=== PATIENT | female | born 1990 | race Two or more races ===

== ENCOUNTER → 2021-12-12 | Outpatient (REF) | payer OTHER | LOC: M SFHCWAGY 16:56 | PROVIDERS: ATTEND Obstetrics & Gynecology | DX: O34.211 Maternal care for low transverse scar from previous cesarean delivery (principal) ==

== ENCOUNTER → 2021-12-28 | Outpatient (CLI) | payer OTHER ==
[~2021-12-28] MED LIST: PREN1TAB11 PO
== END ==
LOC: M LABSMTC 09:24
PROVIDERS: ATTEND Anesthesiology
DX: Z01.818 Encounter for other preprocedural examination (principal); Z11.52 Encounter for screening for COVID-19

== ENCOUNTER 2022-01-01 05:37 | Inpatient (IN) | payer OTHER ==
[~2022-01-01] VITALS: Ht 160 cm; Wt 101.0 kg
[2022-01-01] VITALS (9 sets, daily range): BP systolic 115–135; BP diastolic 58–84
[2022-01-01 06:54] LABS: HEMATOCRIT 38.2 % (36.0-47.0); HEMOGLOBIN 12.4 g/dl (12.0-15.5); MEAN CORPUSCULAR HGB CONC 32.5 g/dl (32.0-36.5); MEAN CORPUSCULAR VOLUME 89.5 fl (80.0-96.0); PLATELET COUNT, AUTOMATED 245 10^3/uL (150-450); RED BLOOD COUNT 4.27 10^6/uL (4.00-5.40); WHITE BLOOD COUNT 11.3 10^3/uL (4.0-10.0)
[2022-01-01] MEDS ORDERED: ceFAZolin SOD 2 GM in IV 1 EA IV ONE (06:55)
[2022-01-01] MEDS ORDERED: LACTATED RINGER'S 1000 ML IV ONE (07:00)
[2022-01-01] MEDS ORDERED: BICITRA 30ML SOLN UDC PO ONE (07:00)
[2022-01-01] MEDS: LR 1,000 ML IV SCH ×6 (07:30→23:55)
[2022-01-01] MEDS ORDERED: RHOGAM 300 MCG (1500 IU) INJ (J2790) IM SCH (07:55)
[2022-01-01] MEDS ORDERED: ONDANSETRON 4MG 2ML VIAL IV PRN ×2 (07:55→09:55)
[2022-01-01] MEDS ORDERED: MOM 30ML SUSPENSION UDC PO PRN (07:55)
[2022-01-01] MEDS ORDERED: OXYTOCIN DRIP 30 UNITS in IV 1 EA IV SCH (07:55)
[2022-01-01] MEDS ORDERED: PERCOCET 5MG/325MG TAB PO PRN ×2 (07:55→09:55)
[2022-01-01] MEDS ORDERED: SIMETHICONE 80MG CHEW TAB PO PRN (07:55)
[2022-01-01] MEDS ORDERED: MORPHINE PRES-FREE INJ 10 MG/10 ML VIAL As Ordered ONE (08:02)
[2022-01-01] MEDS ORDERED: OXYTOCIN INJ 10 UNITS/ML VIAL (J2590) As Ordered ONE (08:02)
[2022-01-01] MEDS ORDERED: ONDANSETRON 4MG 2ML VIAL As Ordered ONE (08:21)
[2022-01-01] MEDS ORDERED: METOCLOPRAMIDE INJ 10MG/2ML VIAL (J2765 PER 1) As Ordered ONE (08:27)
[2022-01-01] MEDS ORDERED: KETOROLAC 60MG 2ML VIAL As Ordered ONE (08:42)
[2022-01-01] MEDS: PRENATAL VITAMINS CHEWABLE TABLET PO SCH (09:00)
[2022-01-01] MEDS: DOCUSATE SODIUM 100MG CAPSULE PO SCH ×2 (09:00→21:00)
[2022-01-01 09:03] LABS: GC DNA AMPLIFICATION NEGATIVE (NEGATIVE)
[2022-01-01] MEDS ORDERED: OXYTOCIN 30 UNITS IN 0.9% NaCl 500ML IV BAG (J2590) As Ordered ONE (09:19)
[2022-01-01] MEDS ORDERED: fentaNYL 100 MCG/2 ML INJECTION IV PRN (09:55)
[2022-01-01] MEDS ORDERED: NALOXONE INJ 0.4MG/1ML VIAL (J2310 PER 1MG) IV PRN ×2 (09:55)
[2022-01-01] MEDS ORDERED: LR 1,000 ML IV SCH (09:55)
[2022-01-01] MEDS ORDERED: **NOTE PATIENT COMMENT** MISC XX SCH (09:55)
[2022-01-01] MEDS ORDERED: METOCLOPRAMIDE INJ 10MG/2ML VIAL (J2765 PER 1) IV PRN (09:55)
[2022-01-01] MEDS ORDERED: diphenhydrAMINE 50MG/ML VIAL (J1200) IV PRN (09:55)
[2022-01-01] MEDS: SLF 3 ML SYR IV SCH ×2 (10:00→15:30)
[2022-01-01] MEDS: KETOROLAC 30 MG/ML 1ML VIAL IV SCH ×2 (14:53→21:00)
[2022-01-01 16:13] LABS: HIV 1&2 SCREEN CENTAUR NEGATIVE (NEGATIVE)
[2022-01-02] MEDS: SLF 3 ML SYR IV SCH (02:00)
[2022-01-02] MEDS: KETOROLAC 30 MG/ML 1ML VIAL IV SCH (03:08)
[2022-01-02 06:00] VITALS: BP 121/62
[2022-01-02 06:47] LABS: HEMATOCRIT 32.7 % (36.0-47.0); HEMOGLOBIN 10.7 g/dl (12.0-15.5); MEAN CORPUSCULAR HEMOGLOBIN 29.8 pg (27.0-33.0); MEAN CORPUSCULAR HGB CONC 32.7 g/dl (32.0-36.5); MEAN CORPUSCULAR VOLUME 91.1 fl (80.0-96.0); PLATELET COUNT, AUTOMATED 220 10^3/uL (150-450); RED BLOOD COUNT 3.59 10^6/uL (4.00-5.40); WHITE BLOOD COUNT 13.4 10^3/uL (4.0-10.0)
[2022-01-02] MEDS: LR 1,000 ML IV SCH ×5 (07:00→23:00)
[2022-01-02 10:00] VITALS: BP 112/65
[2022-01-02] MEDS: PRENATAL VITAMINS CHEWABLE TABLET PO SCH (10:02)
[2022-01-02] MEDS: DOCUSATE SODIUM 100MG CAPSULE PO SCH ×2 (10:02→20:40)
[2022-01-02] MEDS: IBUPROFEN 800 MG TAB PO SCH ×2 (12:07→18:26)
[2022-01-02 14:00] VITALS: BP 130/66
[2022-01-02] MEDS ORDERED: PERCOCET PO (17:45)
[2022-01-02] MEDS ORDERED: COLA100C5 PO (17:45)
[2022-01-02] MEDS ORDERED: IBUP80TA PO (17:45)
[2022-01-02 21:45] VITALS: BP 130/81
[2022-01-02] MEDS: PERCOCET 5MG/325MG TAB PO PRN (22:13)
[2022-01-03 02:00] VITALS: BP 124/64
[2022-01-03] MEDS: IBUPROFEN 800 MG TAB PO SCH ×2 (02:57→11:25)
[2022-01-03] MEDS: PERCOCET 5MG/325MG TAB PO PRN (04:46)
[2022-01-03 06:00] VITALS: BP 115/59
[2022-01-03] MEDS: PRENATAL VITAMINS CHEWABLE TABLET PO SCH (08:29)
[2022-01-03] MEDS: DOCUSATE SODIUM 100MG CAPSULE PO SCH (08:29)
[2022-01-03] MEDS ORDERED: MEASLES,MUMPS,RUBELLA VACCINE INJ (MMR-II) (90707) SC.IMMUN ONE (09:00)
== END 2022-01-03 12:45 | disposition home or self-care (01) | DRG 540 ==
LOC: M LDI 05:37 → M OBS 10:20 → EDUNIT# 01-02 07:30
PROVIDERS: ADMIT Obstetrics & Gynecology; ATTEND Obstetrics & Gynecology
PROC: 10D00Z1 Extraction of Products of Conception, Low, Open Approach (ICD-10-PCS; principal; 2022-01-01 07:30)
DX: O34.211 Maternal care for low transverse scar from previous cesarean delivery (principal); Z3A.39 39 weeks gestation of pregnancy; Z37.0 Single live birth

== ENCOUNTER → 2022-07-04 | Outpatient (REF) | payer OTHER ==
[~2022-07-04] MED LIST changes: +COLA100C5 PO; +IBUP80TA PO; +PERCOCET PO
== END ==
LOC: M SFHCWAGY 10:00
PROVIDERS: ATTEND Obstetrics & Gynecology
DX: Z12.4 Encounter for screening for malignant neoplasm of cervix (principal)
CPT/HCPCS: 87624; G0123

== ENCOUNTER → 2022-07-06 | Outpatient (REF) | payer OTHER | LOC: M PLALAB 14:43 | PROVIDERS: ATTEND Obstetrics & Gynecology | DX: Z53.9 Procedure and treatment not carried out, unspecified reason (principal) ==